=== PATIENT | female | born 1960 | race African-American/Black ===

== ENCOUNTER 2020-05-13 14:45 | Emergency (ER) | payer BC ==
[~2020-05-13] VITALS: Ht 167.6 cm; Wt 88.0 kg
[2020-05-13] MEDS ORDERED: IV NORMAL SALINE 1,000ML 1,000 ML IV SCH (15:00)
[2020-05-13] MEDS ORDERED: ASPIRIN CHEWABLE 81 MG TABLET. PO ONE (15:00)
--- NOTE | 2020-05-13 15:08 | PHYS DOC ---
Past History Past Medical History: Anxiety, CVA, High Cholesterol, Hypertension Past Surgical History: No Surgical History Alcohol Use: None General Adult EDM: Chief Complaint: CHEST PAIN HPI: HPI: Patient is a 59 year old female who presents with CC chest pain. 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 After resting for a few minutes the pain passed and the pt was advised to go to the Emergency Room. Pt denies any diaphoresis, N/V, SOB, vision changes, hearing changes, syncope, or LOC. Review of Systems: Review of Systems: Constitutional: Denies fever or chills Eyes: Denies redness or eye pain HENT: Denies nasal congestion or sore throat Respiratory: Denies cough or shortness of breath Cardiovascular: Admits to chest pain, denies palpitations GI: Denies abdominal pain, nausea, or vomiting : Denies dysuria or hematuria Musculoskeletal: Denies back pain or joint pain Integument: Denies rash or skin lesions Neurologic: Denies headache, focal weakness or sensory changes Complete systems were reviewed and found to be within normal limits, except as documented in this note. Current Medications: Current Meds: Current Medications Medications (Trade) Dose Ordered Sig/Addie Start Time Stop Time Status Last Admin Dose Admin Aspirin (Aspirin Chewable) 243 mg 1X ONCE 05/13/20 15:00 05/13/20 15:01 UNV Sodium Chloride 1,000 ml @ 1,000 mls/hr Q1H 05/13/20 15:00 05/13/20 15:59 UNV Allergies: Allergies: Allergies Coded Allergies Type Severity Reaction Last Updated Verified No Known Drug Allergies 05/13/20 No Physical Exam: PE: Constitutional: Well developed, well nourished, no acute distress, non-toxic appearance HENT: Normocephalic, atraumatic Eyes: PERRL, EOMI, conjunctiva normal, no discharge Neck: Normal range of motion, no tenderness, supple Lungs & Thorax: No respiratory distress, equal chest rise and fall, Capillary refill normal Abdomen: Soft, no tenderness Skin: Warm, dry, no erythema, no rash Back: No tenderness, no CVA tenderness Extremities: No tenderness, ROM intact, no edema Neurologic: Alert and oriented X 3, normal motor function, normal sensory function, no focal deficits noted Psychologic: Affect normal, judgment normal Current Patient Data: Vital Signs: Vital Signs Date Time Temp Pulse Resp B/P (MAP) Pulse Ox O2 Delivery O2 Flow Rate FiO2 05/13/20 14:50 97.6 72 18 153/82 (105) 95 Room Air EKG: EKG: Sinus Rhythm, T wave inversion in aVL. SC interval: 130ms QRS: 90ms QT Interval: 384ms QTc: 422ms[] Radiology/Procedures: Radiology/Procedures: [] Heart Score: HEART Score for Chest Pain: HEART Score for Chest Pain Response (Comments) Value History Moderately Suspicious 1 ECG Nonspecific Repolarizatio 1 Age >45 - < 65 1 Risk Factors 1 or 2 Risk Factors 1 Troponin < Normal Limit 0 Total 4 Risk Factors: Risk Factors: DM, Current or recent (<one month) smoker, HTN, HLP, family history of CAD, obesity. Risk Scores: Score 0 - 3: 2.5% MACE over next 6 weeks - Discharge Home Score 4 - 6: 20.3% MACE over next 6 weeks - Admit for Clinical Observation Score 7 - 10: 72.7% MACE over next 6 weeks - Early Invasive Strategies Course & Med Decision Making: Course & Med Decision Making Pt presented to ED with CC chest pain. Pt had a stroke approximately one year ago and has several rx factors for angina/ACS. EKG shows no ST elevation. Aspirin given. Trend trops. Will follow CBC/CMP/D-Dimer/BNP. Maribethon Disclaimer: Pineda Disclaimer: This electronic medical record was generated, in whole or in part, using a voice recognition dictation system. Departure Departure: Impression: Primary Impression: Chest pain Qualified Codes: R07.9 - Chest pain, unspecified Additional Impression: Left against medical advice Disposition: 07 AMA/ELOPED/LWBS Condition: GUARDED Referrals: FRACISOC MORROW MD (PCP) KASHMIR VUONG MD Patient Instructions: Chest Pain (Nonspecific), [id number], Discharge Against Medical Advice Additional Instructions: You have been offered admission for further evaluation and treatment. You have risk factors for heart disease. Despite laboratory and radiological imaging performed in the Emergency Department, we cannot fully evaluate for cardiac disease. For this reason we have offered to admit you to the hospital to be seen by a systems analyst and to obtain further testing and evaluation. You have elected to leave against medical advice and are willing to accept the risks of doing so, including permanent disability and . Please follow closely with your doctor and/or systems analyst for further outpatient evaluation. Please return to the Emergency Department for any worsening of symptoms or for any other concerns. JUMA DUNBAR DO May 13, 2020 15:08
[2020-05-13 15:17] LABS: BASO # 0.1 x10^3/uL (0.0-0.2); BASO % 1 % (0-3); EOS # 0.1 x10^3/uL (0.0-0.7); EOS % 1 % (0-3); HEMATOCRIT 45.7 % (36.0-47.0); HEMOGLOBIN 15.1 g/dL (12.0-15.5); LYMPH # 1.4 x10^3/uL (1.0-4.8); LYMPH % 18 % (24-48); MEAN CORPUSCULAR HEMOGLOBIN 31 pg (25-35); MEAN CORPUSCULAR HGB CONC 33 g/dL (31-37); MEAN CORPUSCULAR VOLUME 92 fL (79-100); MONO # 0.7 x10^3/uL (0.0-1.1); MONO % 10 % (0-9); NEUT # 5.2 x10^3uL (1.8-7.7); NEUT % 70 % (31-73); PLATELET COUNT 181 x10^3/uL (140-400); RED BLOOD COUNT 4.96 x10^6/uL (3.50-5.40); RED CELL DISTRIBUTION WIDTH 14.8 % (11.5-14.5); WHITE BLOOD COUNT 7.4 x10^3/uL (4.0-11.0)
--- NOTE | 2020-05-13 15:17 | EKG ---
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
[2020-05-13 15:25] LABS: CALCIUM 9.5 mg/dL (8.5-10.1); CREATININE 0.6 mg/dL (0.6-1.0); POTASSIUM 4.2 mmol/L (3.5-5.1)
[2020-05-13 15:42] LABS: ALBUMIN/GLOBULIN RATIO 1.1 (1.0-1.7); MAGNESIUM 2.4 mg/dL (1.8-2.4); TOTAL BILIRUBIN 0.3 mg/dL (0.2-1.0); TOTAL PROTEIN 7.8 g/dL (6.4-8.2)
[2020-05-13 16:30] VITALS: BP 160/72
--- NOTE | 2020-05-13 16:54 | RAD ---
EXAM: CHEST 1 VIEW History: Chest pain COMPARISON: None available. TECHNIQUE: Single portable radiograph of the chest FINDINGS: Mild cardiomegaly. Mild bibasilar lung atelectasis or infiltrates. The costophrenic sulci are clear and well demarcated. IMPRESSION: Mild bibasilar atelectasis or infiltrates. Electronically signed by: Ottoniel Lara MD (05/13/2020 4:52 PM) [id number]
== END 2020-05-13 16:48 | disposition left against medical advice (07) ==
LOC: ER 14:45
DX: R07.89 Other chest pain (principal); F41.9 Anxiety disorder, unspecified; E78.00 Pure hypercholesterolemia, unspecified; I10 Essential (primary) hypertension; Z86.73 Personal history of transient ischemic attack (TIA), and cerebral infarction without residual deficits
CPT/HCPCS: 36415; 71045; 80053; 82553; 83690; 83735; 83880; 84484; 85025; 85379; 85610; 85730; 93005; 96360; 96361; 99285; J7030

== ENCOUNTER 2021-07-18 08:00 | Emergency (ER) | payer BC, OTHER ==
[~2021-07-18] VITALS: Ht 167.6 cm; Wt 88.0 kg
[2021-07-18] MEDS ORDERED: ASPIRIN CHEWABLE 81 MG TABLET. PO ONE (08:30)
[2021-07-18] MEDS ORDERED: NITROGLYCERIN SUBLINGUAL 0.4 MG BOTTLE OF 25. SL PRN (08:30)
--- NOTE | 2021-07-18 08:30 | PHYS DOC ---
Past History Past Medical History: Anxiety, CVA, High Cholesterol, Hypertension Past Surgical History: No Surgical History Alcohol Use: None General Adult EDM: Chief Complaint: BACK PAIN OR INJURY HPI: HPI: 61-year-old female presents with shoulder blade pain. Patient states she was driving to work about an hour ago when she started to get that sharp sensation just under her left shoulder blade. It has continued to this time. It is constant but gets worse and decreases at random. The worst its pain is an 8 out of 10. It is currently an 8 out of 10. She took a baby aspirin today. She does not take her baby aspirin every day. 2 years ago she had a cardiac catheterization and ended up needing a left carotid surgery. She has only had one follow-up appointment since that time. Patient denies significant shortness of breath or diaphoresis. She is concerned this could be her heart. Denies any falls or trauma. She has no other complaints this time. Review of Systems: Review of Systems: Constitutional: Denies fever or chills Eyes: Denies change in visual acuity HENT: Denies nasal congestion or sore throat Respiratory: Denies cough or shortness of breath Cardiovascular: chest pain GI: Denies abdominal pain, nausea, vomiting, bloody stools or diarrhea : Denies dysuria Musculoskeletal: Denies back pain or joint pain Integument: Denies rash Neurologic: Denies headache, focal weakness or sensory changes Endocrine: Denies polyuria or polydipsia Lymphatic: Denies swollen glands Psychiatric: Denies depression or anxiety Allergies: Allergies: Allergies Coded Allergies Type Severity Reaction Last Updated Verified No Known Drug Allergies 05/13/20 No Physical Exam: PE: Constitutional: Well developed, well nourished, obese, no acute distress, non- toxic appearance. [] HENT: Normocephalic, atraumatic, bilateral external ears normal, oropharynx moist, no oral exudates, nose normal. [] Eyes: PERRLA, EOMI, conjunctiva normal, no discharge. [] Neck: Normal range of motion, no tenderness, supple, no stridor. [] Cardiovascular: Heart rate 75, regular rhythm, no murmur [] Lungs & Thorax: Bilateral breath sounds clear to auscultation [] Abdomen: Bowel sounds normal, soft, no tenderness, no masses, no pulsatile masses. [] Skin: Warm, dry, no erythema, no rash. [] Back: No tenderness, no CVA tenderness. [] Extremities: No tenderness, no cyanosis, no clubbing, ROM intact, no edema. [] Neurologic: Alert and oriented X 3, normal motor function, normal sensory functi on, no focal deficits noted. [] Psychologic: Affect normal, judgement normal, mood anxious. [] EKG: EKG: Sinus rhythm, rate 75, normal axis, no significant ST elevation or depression. [] Radiology/Procedures: Radiology/Procedures: [] Impressions: XR CHEST 1V History: Chest pain Comparison: 05/05/2020 Technique: Portable AP radiograph of the chest. Findings: Lungs are adequately inflated. No airspace consolidation, pleural effusion or pneumothorax. The cardiomediastinal silhouette and pulmonary vasculature are within normal limits. Calcification of the aortic arch. Degenerative changes of the shoulders and spine. Soft tissues are unremarkable. Impression: 1. No acute cardiopulmonary process. Electronically signed by: Tk Ambrose MD (07/18/2021 9:20 AM) [id number] DICTATED AND SIGNED BY: TK AMBROSE MD DATE: 07/18/21917 CC: NAYELI DURON DO; GENOVEVA FOSTER ~MTH0 0 Heart Score: C/O Chest Pain: Yes HEART Score for Chest Pain: HEART Score for Chest Pain Response (Comments) Value History Moderately Suspicious 1 ECG Normal 0 Age >45 - < 65 1 Risk Factors >3 Risk Factors or Hx CAD 2 Troponin < Normal Limit 0 Total 4 Risk Factors: Risk Factors: DM, Current or recent (<one month) smoker, HTN, HLP, family history of CAD, obesity. Risk Scores: Score 0 - 3: 2.5% MACE over next 6 weeks - Discharge Home Score 4 - 6: 20.3% MACE over next 6 weeks - Admit for Clinical Observation Score 7 - 10: 72.7% MACE over next 6 weeks - Early Invasive Strategies Course & Med Decision Making: Course & Med Decision Making Pertinent Labs and Imaging studies reviewed. (See chart for details) The patient's EKG is negative for acute findings. Her first troponin is negative. Her labs show an elevated hemoglobin and liver enzymes. Chest x-ray is negative for acute findings. The patient's heart score is a 4. She was given 324 of aspirin on arrival and 1 dose of sublingual nitroglycerin. She states the nitroglycerin improved her pain to a 1. I would prefer admit the patient to the hospital. The patient really does not want to be admitted. We have negotiated to pull a 2nd troponin 3 hours after the 1st. We will then reevaluate. The patient's second troponin is negative. It is actually down 1. The patient wants to go home. She is stable for discharge at this time. I have strongly advised her that if her symptoms return that she needs to come back to the hospital and be admitted. She states verbal understanding. [] Maribethon Disclaimer: Pineda Disclaimer: This electronic medical record was generated, in whole or in part, using a voice recognition dictation system. Departure Departure: Impression: Primary Impression: Chest pain Qualified Codes: R07.2 - Precordial pain Disposition: 01 HOME / SELF CARE / HOMELESS Admitting Physician: Erick Malik Condition: STABLE Referrals: GENOVEVA FOSTER (PCP) Patient Instructions: Chest Pain (Nonspecific), [id number] NAYELI DURON DO Jul 18, 2021 08:30
[2021-07-18 08:35] VITALS: BP 139/80
--- NOTE | 2021-07-18 08:36 | EKG ---
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
[2021-07-18 08:47] LABS: BASO # 0.1 x10^3/uL (0.0-0.2); BASO % 1 % (0-3); EOS # 0.1 x10^3/uL (0.0-0.7); EOS % 1 % (0-3); HEMATOCRIT 50.7 % (36.0-47.0); HEMOGLOBIN 17.4 g/dL (12.0-15.5); LYMPH # 1.2 x10^3/uL (1.0-4.8); LYMPH % 20 % (24-48); MEAN CORPUSCULAR HEMOGLOBIN 32 pg (25-35); MEAN CORPUSCULAR HGB CONC 34 g/dL (31-37); MEAN CORPUSCULAR VOLUME 93 fL (79-100); MONO # 0.5 x10^3/uL (0.0-1.1); MONO % 7 % (0-9); NEUT # 4.5 x10^3uL (1.8-7.7); NEUT % 71 % (31-73); PLATELET COUNT 155 x10^3/uL (140-400); RED BLOOD COUNT 5.43 x10^6/uL (3.50-5.40); RED CELL DISTRIBUTION WIDTH 15.1 % (11.5-14.5); WHITE BLOOD COUNT 6.3 x10^3/uL (4.0-11.0)
[2021-07-18 08:56] LABS: CALCIUM 9.3 mg/dL (8.5-10.1); CREATININE 0.5 mg/dL (0.6-1.0); GFR 151.3; POTASSIUM 4.1 mmol/L (3.5-5.1)
[2021-07-18 09:03] LABS: ALBUMIN 3.9 g/dL (3.4-5.0); ALBUMIN/GLOBULIN RATIO 0.9 (1.0-1.7); TOTAL BILIRUBIN 0.4 mg/dL (0.2-1.0); TOTAL PROTEIN 8.4 g/dL (6.4-8.2)
--- NOTE | 2021-07-18 09:22 | RAD ---
XR CHEST 1V History: Chest pain Comparison: 05/05/2020 Technique: Portable AP radiograph of the chest. Findings: Lungs are adequately inflated. No airspace consolidation, pleural effusion or pneumothorax. The cardi omediastinal silhouette and pulmonary vasculature are within normal limits. Calcification of the aort ic arch. Degenerative changes of the shoulders and spine. Soft tissues are unremarkable. Impression: 1. No acute cardiopulmonary process. Electronically signed by: Tk Zimmerman MD (07/18/2021 9:20 AM) [id number]
== END 2021-07-18 11:22 | disposition home or self-care (01) ==
LOC: ER 08:00
DX: R07.2 Precordial pain (principal); F41.9 Anxiety disorder, unspecified; E78.00 Pure hypercholesterolemia, unspecified; I10 Essential (primary) hypertension; Z86.73 Personal history of transient ischemic attack (TIA), and cerebral infarction without residual deficits
CPT/HCPCS: 36415; 71045; 80053; 84484; 85025; 93005; 99285